=== PATIENT | female | born 1955 | race Caucasian/White ===

== ENCOUNTER 2017-06-16 20:26 | Emergency (ER) | payer BC ==
[2017-06-16 20:44] VITALS: BP 111/54
--- NOTE | 2017-06-16 21:52 | ERNOTE ---
Date of Service: 06/16/17 Time Seen by Provider: 06/16/17 21:41 Stated Complaint: COUGH Presenting Symptoms:: cough, runny nose, other - Post nasal drainage. Sinus pressure Source: patient Exam Limitations: no limitations Immunizations: IMMUNIZATION HX Immunizations Up to Date Yes History of Influenza Vaccine No Hx Pneumococcal Vaccination No Allergies/Adverse Reactions: Allergies No Known Allergies Allergy (Unverified 06/26/15 16:34) Home Medications: HOME MEDICATIONS HYDROcodone/ACETAMINOPHEN [Dillon 5-325 Tablet] 1 - 2 tab PO QID PRN #30 tab 01/09 [Last Taken Unknown] Zolpidem Tartrate [Ambien] 7.5 mg PO PRN PRN 06/26/15 [Last Taken Unknown] Codeine Phosphate/Guaifenesin [Codeine-Guaifen 10-100 mg/5 ml] 10 ml PO 5XD PRN #120 liquid 06/16/17 [Last Taken Unknown] predniSONE [Prednisone] 2 tab PO DAILY #6 tab 06/16/17 [Last Taken Unknown] - History of Present Ilness Narrative: Patient states over the past several days she has noticed some nasal congestion , post nasal drainage, and cough of yellow sputum. Date (Duration): 06/10/17 Timing: getting worse Severity: moderate Frequency/Possible Cause: Reports: allergen exposure Modifying Factors - Improves: Reports: other - ibuprofen Modifying Factors - Worsens: Reports: other - Being out in the heat Associated Symptoms: Reports: cough, wheezing, nasal congestion, nasal drainage , headache Review of Systems - Narrative Narrative: As described patient has symptoms of upper respiratory infection. 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 Cough is worsening with changes in sputum color. - Review of Systems Constitutional: Present: fatigue EYE: Present: no symptoms reported ENT: Present: nose congestion, nasal drainage, other - Post nasal drainage. Respiratory: Present: cough, wheezing Cardiology: Present: no symptoms reported Gastrointestinal/Abdominal: Present: no symptoms reported Musculoskeletal: Present: other - Generalized body aches. Skin: Present: no symptoms reported Neurological: Present: no symptoms reported Endocrine: Present: no symptoms reported Hematologic/Lymphatic: Present: no symptoms reported - Patient's Past Medical History Patient History - Medical: Depression, Fibromyalgia, Other Patient History - Cardiac/Respiratory: Bronchitis, Pneumonia Patient History - Cancer: Breast Patient History - Surgical Procedures: Other Patient History - Other: None - Social History Living Situations: home Psych History: No pertinent hx Smoking Status: Never smoker Alcohol Use: none Drug Use: none - Immunizations Immunizations Up to Date: Yes Hx Pneumococcal Vaccination: No History of Influenza Vaccine: No Physical Exam - Physical Exam General Appearance: Present: wd/wn, alert, mild distress, cheerful Eye Exam: Normal inspection: bilateral, PERRL: bilateral, EOMI: bilateral Ears, Nose, Throat: Present: nasal congestion, sinus pain/drainage, pharyngeal erythema, other - Mild maxillary sinus tenderness bilateral. Mild turbinate hypertrophy with erythema bilateal. Crusting of nares. White post nasal drainage. Neck: Present: normal inspection, nontender, supple, full range of motion Respiratory: Present: no respiratory distress, normal breath sounds, no accessory muscle use, chest nontender, lungs clear Cardiovascular/Chest: Present: regular rate, rhythm, no murmur, normal peripheral pulses Gastrointestinal/Abdominal: Present: normal bowel sounds, soft Neurological Exam: Present: alert, oriented, normal mood/affect, no motor/ sensory deficits Skin Exam: Present: normal color, warm/dry Lymphatic Exam: Present: no adenopathy Pelvic Exam: Present: deferred ED Progress - Results and Orders Patient's Lab Results:: I have reviewed the patient's lab results. - Vital Signs Patient's Vital Signs:: I have reviewed the patient's vital signs. Vital Signs: Vital Signs 06/16/17 06/16/17 20:26 20:42 Temperature 37.1 C Pulse Rate 84 Respiratory 18 Rate Blood Pressure 114/67 111/54 O2 Sat by Pulse 98 Oximetry - Progress/Reassessment Chief Complaint: Cough Progress:: Re-examined - Patient is stable. Will provide medication intervention and will discharge patient to continue therapy at home. States her resting here makes her feel somewhat better. Departure - Departure Clinical Impression: Bronchitis Disposition: Home self-care Condition: Good Additional Instructions: Appears to be a viral bronchitis which we will treat with a short course of prednisone along with a cough medication. The codeine may make you drowsy so take with caution. Should see some improvement over the next 24-48 hrs. If not return to ER or follow up with family provider. Drink plenty of fluids and get plenty of rest. Prescriptions: Codeine Phosphate/Guaifenesin [Codeine-Guaifen 10-100 mg/5 ml] 10 ml PO 5XD PRN #120 liquid PRN Reason: Cough predniSONE [Prednisone] 2 tab PO DAILY #6 tab
[2017-06-16 22:04] LABS: Hemoglobin 13.4 gm/dL (12.5-16.0); Mean Cell Volume 90.5 fl (78-100); Mean Corpuscular Hemoglobin 30.3 pg (27-31); Mean Corpuscular Hgb Conc 33.5 g/dl (32-36); Mean Platelet Volume 9.7 fl (6.0-9.5); Neutrophil # 5.7 K/mm3 (1.3-6.0); Neutrophil % 79.8 % (42-75.0); Platelet Count 140 K/mm3 (150-450); Red Blood Count 4.42 M/mm3 (4.2-5.4); White Blood Count 7.2 K/mm3 (4.0-10.5)
[2017-06-16] MEDS ORDERED: predniSONE 20 MG TABLET PO ONE (22:15)
[2017-06-16] MEDS ORDERED: CODEINE PHOSPHATE/GUAIFENESIN 5 ML UDC PO ONE (22:15)
[2017-06-16] MEDS ORDERED: CODEINE PHOSPHATE/GUAIFENESIN 5 ML UDC ONE (22:22)
[2017-06-16] MEDS ORDERED: predniSONE 20 MG TABLET ONE (22:22)
== END 2017-06-16 22:33 | disposition home or self-care (01) ==
LOC: ER 20:26
DX: J40 Bronchitis, not specified as acute or chronic (principal); Z85.3 Personal history of malignant neoplasm of breast